=== PATIENT | male | born 1965 | race Caucasian/White ===

== ENCOUNTER 2022-11-10 16:16 | Emergency (ER) | payer BC ==
[2022-11-10] MEDS ORDERED: Lidocaine 2% 20 ml MDV ONE (17:05)
[2022-11-10] MEDS ORDERED: Mupirocin 2% Ointment 22 GM Tube ONE (17:13)
[2022-11-10] MEDS ORDERED: Bacitracin 1 PK ONE (17:14)
== END 2022-11-10 18:00 | disposition home or self-care (01) ==
LOC: MADERS 16:16
DX: S41.142A Puncture wound with foreign body of left upper arm, initial encounter (principal); I10 Essential (primary) hypertension; F17.290 Nicotine dependence, other tobacco product, uncomplicated; W34.09XA Accidental discharge from other specified firearms, initial encounter
CPT/HCPCS: 71045